=== PATIENT | male | born 1985 | race Caucasian/White ===

== ENCOUNTER 2020-03-30 10:28 | Emergency (ER) | payer SELFPAY ==
[2020-03-30] MEDS ORDERED: Ketorolac 60 MG/2 ML SDV IM ONE (10:39)
[2020-03-30] MEDS ORDERED: Diphtheria,Pertussis(Acell),Tetanus Vaccine 0.5 ML SDV IM ONE (11:30)
--- NOTE | 2020-03-30 11:47 | EDM.PDOC ---
ED HPI GENERAL MEDICAL PROBLEM - General Chief Complaint: Upper Extremity Injury/Pain Stated Complaint: NAIL IN HAND Time Seen by Provider: 03/30/20 10:55 Source of Information: Reports: Patient History Limitations: Reports: No Limitations - History of Present Illness INITIAL COMMENTS - FREE TEXT/NARRATIVE: Patient presented to the ED because he accidentally punctured the base of his left thumb. He is able to flex and extend his left thumb without any difficulty. Left Hand Pain Score (Numeric/FACES): 8 - Related Data Allergies Allergy/AdvReac Type Severity Reaction Status Date / Time amoxicillin Allergy Mild Other Verified 03/30/20 10:37 Home Meds: Home Meds NK [No Known Home Meds] 03/30/20 [History] Social & Family History - Tobacco Use Smoking Status *Q: Current Every Day Smoker Years of Tobacco use: 20 Packs/Tins Daily: 1 - Caffeine Use Caffeine Use: Reports: Energy Drinks - Recreational Drug Use Recreational Drug Use: Yes Drug Use in Last 12 Months: Yes Recreational Drug Type: Reports: Marijuana/Hashish Recreational Drug Use Frequency: Weekly Review of Systems - Review of Systems Review Of Systems: See Below Constitutional: Reports: No Symptoms Eyes: Reports: No Symptoms Ears: Reports: No Symptoms Nose: Reports: No Symptoms Mouth/Throat: Reports: No Symptoms Respiratory: Reports: No Symptoms Cardiovascular: Reports: No Symptoms GI/Abdominal: Reports: No Symptoms Genitourinary: Reports: No Symptoms Musculoskeletal: Reports: No Symptoms Skin: Reports: Wound ED EXAM, GENERAL - Physical Exam Exam: See Below Exam Limited By: No Limitations General Appearance: Alert, No Apparent Distress Nose: Normal Inspection, Normal Mucosa Throat/Mouth: Normal Inspection, Normal Lips, Normal Teeth Head: Atraumatic, Normocephalic Neck: Normal Inspection, Supple, Non-Tender, Full Range of Motion Respiratory/Chest: No Respiratory Distress, Lungs Clear, Normal Breath Sounds Cardiovascular: Normal Peripheral Pulses, Regular Rate, Rhythm, No Edema GI/Abdominal: Normal Bowel Sounds Back Exam: Normal Inspection Extremities: Normal Inspection Neurological: Alert, Oriented, CN II-XII Intact Psychiatric: Normal Affect, Normal Mood Skin Exam: Warm, Other (nail embeded at the base of left thumb) Course - Vital Signs Text/Narrative:: Manual removal of nail Tdap Last Recorded V/S: Last Vital Signs Temp 36.6 C 03/30/20 10:52 Pulse 63 03/30/20 10:52 Resp 18 03/30/20 10:52 BP 150/77 H 03/30/20 10:52 Pulse Ox 98 03/30/20 10:52 - Orders/Labs/Meds Orders: Active Orders 24 hr Category Date Time Status Vaccines to be Administered [RC] PER UNIT ROUTINE Care 03/30/20 11:30 Active Hand 2V Lt [CR] Stat Exams 03/30/20 10:38 Taken Meds: Medications Discontinued Medications Generic Name Dose Route Start Last Admin Trade Name Janett PRN Reason Stop Dose Admin Diphtheria/Tetanus/Acell Pertussis 0.5 ml 03/30/20 11:30 03/30/20 11:35 Adacel IM 03/30/20 11:31 0.5 ml .ONCE ONE Administration Ketorolac Tromethamine 60 mg 03/30/20 10:39 03/30/20 10:44 Toradol IM 03/30/20 10:40 60 mg ONETIME ONE Administration Departure - Departure Time of Disposition: 11:50 Disposition: Home, Self-Care 01 Condition: Good Clinical Impression: Puncture wound - Discharge Information Instructions: Puncture Wound, [id number] Referrals: PCP,None [Primary Care Provider] - Forms: ED Department Discharge Additional Instructions: Please read discharge instructions on puncture wound Take ibuprofen 800 mg with tylenol 1000 mg evry 8 hours as needed for pain Follow up as needed Sepsis Event Note (ED) - Evaluation Sepsis Screening Result: No Definite Risk - Focused Exam Vital Signs: Vital Signs Temp Pulse Resp BP Pulse Ox 03/30/20 10:52 36.6 C 63 18 150/77 H 98 - My Orders Last 24 Hours: My Active Orders 03/30/20 10:38 Hand 2V Lt [CR] Stat 03/30/20 11:30 Vaccines to be Administered [RC] PER UNIT ROUTINE - Assessment/Plan Last 24 Hours: My Active Orders 03/30/20 10:38 Hand 2V Lt [CR] Stat 03/30/20 11:30 Vaccines to be Administered [RC] PER UNIT ROUTINE
== END 2020-03-30 12:00 | disposition home or self-care (01) ==
LOC: FB.ED 10:28
DX: S61.432A Puncture wound without foreign body of left hand, initial encounter (principal); F17.210 Nicotine dependence, cigarettes, uncomplicated; Z23 Encounter for immunization; Z88.1 Allergy status to other antibiotic agents; W45.0XXA Nail entering through skin, initial encounter
CPT/HCPCS: 73120-LT; 90471; 90715; 96372; 99282; 99283-25; J1885